=== PATIENT | female | born 1940 | race Caucasian/White ===

== ENCOUNTER → 2020-03-17 | Outpatient (CLI) | payer OTHER ==
--- NOTE | 2020-03-17 14:43 | NUR ---
PT WAS ASSESSED FOR HOME OXYGEN. PT DID NOT QUALIFY PT AT REST SPO2 96% RA @ REST, HR 104, RR20, B/P 100/78 PT AMBULATED SPO2 91-94% RA PT AT REST SPO2 94% RA, HR 151, RR 28, B/P 110/80 DR PARK NOTIFIED
== END | disposition home or self-care (01) ==
LOC: CP 13:52
DX: I51.7 Cardiomegaly (principal); J44.9 Chronic obstructive pulmonary disease, unspecified

== ENCOUNTER → 2020-11-14 | Outpatient (CLI) | payer OTHER | END | disposition home or self-care (01) | LOC: COVID19 11:47 | PROVIDERS: ATTEND Family Medicine | DX: R05 Cough (principal); Z20.822 Contact with and (suspected) exposure to COVID-19 ==

== ENCOUNTER → 2021-07-07 | Outpatient (CLI) | payer OTHER | END | disposition home or self-care (01) | LOC: COVID19 15:43 | PROVIDERS: ATTEND Internal Medicine | DX: U07.1 COVID-19 (principal) ==